=== PATIENT | female | born 1950 | race Caucasian/White ===

== ENCOUNTER 2017-07-31 18:12 | Emergency (ER) | payer MEDICARE ==
[~2017-07-31] VITALS: Ht 162.6 cm; Wt 98.0 kg
[~2017-07-31 18:12] MED LIST: MOTRIN400 MG OR
[2017-07-31] MEDS ORDERED: MEDDOSEPAK PO (19:41)
[2017-07-31] MEDS ORDERED: PERCOCET 5/325M1 TAB PO (19:41)
[2017-07-31 19:55] VITALS: BP 147/96
== END 2017-07-31 19:55 | disposition home or self-care (01) ==
LOC: ED 18:12
DX: M19.032 Primary osteoarthritis, left wrist (principal); M19.031 Primary osteoarthritis, right wrist; Y93.E9 Activity, other interior property and clothing maintenance; Y92.008 Other place in unspecified non-institutional (private) residence as the place of occurrence of the external cause; M79.642 Pain in left hand; M79.641 Pain in right hand